=== PATIENT | male | born 1995 | race Caucasian/White ===

== ENCOUNTER 2023-12-31 17:22 | Emergency (ER) | payer OTHER ==
[2023-12-31] MEDS: Amoxicillin/Clavulanate K 875-125 MG Tab PO ONE (18:01)
== END 2023-12-31 18:11 | disposition home or self-care (01) ==
LOC: FB.ED 17:22
DX: S81.851A Open bite, right lower leg, initial encounter (principal); S81.831A Puncture wound without foreign body, right lower leg, initial encounter; W54.0XXA Bitten by dog, initial encounter; Z88.1 Allergy status to other antibiotic agents; Z88.2 Allergy status to sulfonamides; Z88.8 Allergy status to other drugs, medicaments and biological substances
CPT/HCPCS: 99283; A9270

== ENCOUNTER 2024-05-26 11:43 | Emergency (ER) | payer OTHER ==
[2024-05-26] MEDS: Acetaminophen/oxyCODONE 325-5 MG Tab PO STA (12:03)
[2024-05-26] MEDS: Cyclobenzaprine 10 MG Tab PO ONE (12:03)
[2024-05-26] MEDS: Ketorolac 30 MG/ML SDV IM STA (12:03)
[2024-05-26] MEDS: Morphine 4 MG/ML VIAL IM ONE (13:09)
== END 2024-05-26 13:34 | disposition home or self-care (01) ==
LOC: FB.ED 11:43
DX: M51.369 Other intervertebral disc degeneration, lumbar region without mention of lumbar back pain or lower extremity pain (principal); M43.16 Spondylolisthesis, lumbar region; Z88.8 Allergy status to other drugs, medicaments and biological substances; Z88.2 Allergy status to sulfonamides
CPT/HCPCS: 96372; 99283; 99284; A9270-GY; J1885; J2270